=== PATIENT | female | born 1990 | race Caucasian/White ===

== ENCOUNTER → 2021-09-20 09:39 | Outpatient (BNVA) | payer BC, SELFPAY | PROVIDERS: Visit Provider Internal Medicine | DX: R76.8 Other specified abnormal immunological findings in serum (principal); R53.83 Other fatigue; R41.89 Other symptoms and signs involving cognitive functions and awareness; M25.50 Pain in unspecified joint; Z11.59 Encounter for screening for other viral diseases; Z79.899 Other long term (current) drug therapy | CPT/HCPCS: 36415; 81001; 87086; 99204; 99214 ==

== ENCOUNTER → 2021-09-21 08:47 | Outpatient (BNVA) | payer BC, SELFPAY | PROVIDERS: Visit Provider Internal Medicine | DX: M25.50 Pain in unspecified joint (principal); R41.89 Other symptoms and signs involving cognitive functions and awareness; R53.83 Other fatigue; Z11.59 Encounter for screening for other viral diseases; R76.8 Other specified abnormal immunological findings in serum; Z79.899 Other long term (current) drug therapy | CPT/HCPCS: 36415; 82306; 82607; 82728; 83540; 84425; 84439; 84443; 86160; 86704; 86803; 87340 ==

== ENCOUNTER → 2021-09-28 15:26 | Outpatient (BNVA) | payer BC, SELFPAY | PROVIDERS: PCP Physician Assistant; Visit Provider Internal Medicine | DX: R76.8 Other specified abnormal immunological findings in serum (principal); R53.83 Other fatigue; R41.89 Other symptoms and signs involving cognitive functions and awareness; M25.50 Pain in unspecified joint | CPT/HCPCS: 99214 ==